=== PATIENT | male | born 1950 | race Caucasian/White ===

== ENCOUNTER 2025-03-01 07:04 | Day surgery (SDC) | payer MEDICARE ==
[~2025-03-01 07:04] MED LIST: Metoclopramide 10 MG/2 ML SDV IV PRN
[2025-03-01] MEDS: Sodium Chloride 0.9% 1,000 ML IV SCH (07:51)
[2025-03-01] MEDS ORDERED: Propofol 500 MG/50 ML SDV ONE (08:30)
[2025-03-01 08:52] VITALS: BP 138/92; PULSE 52
== END 2025-03-01 09:35 | disposition home or self-care (01) ==
LOC: LB.SDS 07:04
PROVIDERS: ATTEND Surgery
DX: Z12.11 Encounter for screening for malignant neoplasm of colon (principal); D12.2 Benign neoplasm of ascending colon; D12.3 Benign neoplasm of transverse colon; Z86.0100 Personal history of colon polyps, unspecified; K57.30 Diverticulosis of large intestine without perforation or abscess without bleeding; I10 Essential (primary) hypertension; E78.5 Hyperlipidemia, unspecified; Z79.899 Other long term (current) drug therapy
CPT/HCPCS: J2704; J7030